=== PATIENT | male | born 1995 | race Caucasian/White ===

== ENCOUNTER 2016-09-21 01:33 | Emergency (ER) | payer MEDICAID ==
[~2016-09-21] VITALS: Ht 165.1 cm; Wt 54.0 kg
[2016-09-21] MEDS ORDERED: KETOROLAC TROMETHAMINE 60 MG/2 ML VIAL IM ONE (02:00)
[2016-09-21] MEDS ORDERED: HYDROCODONE/ACETAMINOPHEN 5-325 MG TABLET PO ONE (02:00)
[2016-09-21 03:33] VITALS: BP 124/71
== END 2016-09-21 03:50 | disposition home or self-care (01) ==
LOC: EMS 01:34
DX: S39.012A Strain of muscle, fascia and tendon of lower back, initial encounter (principal); X58.XXXA Exposure to other specified factors, initial encounter; Y93.89 Activity, other specified; Y92.89 Other specified places as the place of occurrence of the external cause; Y99.8 Other external cause status
CPT/HCPCS: 72100; 96372; 99284; J1885

== ENCOUNTER 2017-02-25 23:42 | Emergency (ER) | payer MEDICAID ==
[~2017-02-25] VITALS: Ht 162.6 cm; Wt 61.0 kg
[2017-02-26] MEDS ORDERED: HYDROCODONE/ACETAMINOPHEN 5-325 MG TABLET PO ONE (00:15)
[2017-02-26] MEDS ORDERED: KETOROLAC TROMETHAMINE 60 MG/2 ML VIAL IM ONE (00:15)
[2017-02-26 02:26] VITALS: BP 122/63
== END 2017-02-26 02:28 | disposition home or self-care (01) ==
LOC: EMS 23:43
DX: S29.011A Strain of muscle and tendon of front wall of thorax, initial encounter (principal); F12.90 Cannabis use, unspecified, uncomplicated; X58.XXXA Exposure to other specified factors, initial encounter; Y93.89 Activity, other specified; Y92.89 Other specified places as the place of occurrence of the external cause; Y99.8 Other external cause status
CPT/HCPCS: 80307; 93005; 96372; 99285; J1885